=== PATIENT | male | born 1970 | race Caucasian/White ===

== ENCOUNTER 2016-09-18 15:33 | Emergency (ER) | payer SELFPAY | END 2016-09-18 17:24 | disposition home or self-care (01) | LOC: ER1 15:33 | DX: S46.911A Strain of unspecified muscle, fascia and tendon at shoulder and upper arm level, right arm, initial encounter (principal); F17.290 Nicotine dependence, other tobacco product, uncomplicated; X50.0XXA Overexertion from strenuous movement or load, initial encounter; Y93.89 Activity, other specified; Y92.69 Other specified industrial and construction area as the place of occurrence of the external cause; Y99.0 Civilian activity done for income or pay | CPT/HCPCS: 96372; 99283; J1885 ==

== ENCOUNTER 2020-04-24 16:38 | Emergency (ER) | payer OTHER ==
[~2020-04-24 16:38] MED LIST: AUGMENTIN 875-1 EACH PO; CYCLOBENZAPRINE5 MG PO; IBUPROFEN800 MG PO; NAPROSYN500 MG PO
== END 2020-04-24 18:55 | disposition home or self-care (01) ==
LOC: ER1 16:38
DX: S60.022A Contusion of left index finger without damage to nail, initial encounter (principal); W22.09XA Striking against other stationary object, initial encounter; Y92.89 Other specified places as the place of occurrence of the external cause; Y99.0 Civilian activity done for income or pay
CPT/HCPCS: 29130; 73130; 99283

== ENCOUNTER 2020-05-09 07:59 | Observation (INO) | payer OTHER, MEDICAID ==
[~2020-05-09] VITALS: Ht 180.3 cm; Wt 106.6 kg
[2020-05-09 10:09] LABS: HEMOGLOBIN 14.6 gm/dl (14.0-17.5); RED BLOOD COUNT 4.61 M/UL (4.20-5.50); WHITE BLOOD COUNT 9.8 K/UL (4.5-11.0)
[2020-05-09 10:42] LABS: BUN/CREATININE RATIO 19 (0-10)
[2020-05-09] MEDS ORDERED: HYDROCODON-ACE1 EAC2 PO (11:44)
[2020-05-10] MEDS ORDERED: HYDROCODON-ACE1 EAC2 PO (11:43)
== END 2020-05-10 12:46 | disposition home or self-care (01) ==
LOC: ER1 07:59 → CDU 10:19 → MED SURG 4 10:19
PROVIDERS: Orthopaedic Surgery; Physician Assistant; ADMIT Internal Medicine
PROC: 0X6S0Z3 Detachment at Right Ring Finger, Low, Open Approach (ICD-10-PCS; principal; 2020-05-09 20:46)
DX: S68.124A Partial traumatic metacarpophalangeal amputation of right ring finger, initial encounter (principal); W31.2XXA Contact with powered woodworking and forming machines, initial encounter; G89.29 Other chronic pain; M54.9 Dorsalgia, unspecified; F17.210 Nicotine dependence, cigarettes, uncomplicated; Z79.899 Other long term (current) drug therapy; Z20.822 Contact with and (suspected) exposure to COVID-19
CPT/HCPCS: 73130; 80053; 85025; 90471; 90715; 96374; 96375; 96376; 99284; G0378; J0360; J0690; J1100; J1170; J2001; J2250; J2270; J2405; J2704; J3010; J7120; U0002

== ENCOUNTER 2020-11-10 14:38 | Emergency (ER) | payer OTHER ==
[~2020-11-10 14:38] MED LIST changes: +HYDROCODON-ACE1 EAC2 PO
== END 2020-11-10 15:36 | disposition left against medical advice (07) ==
LOC: ER1 14:38
DX: Z53.21 Procedure and treatment not carried out due to patient leaving prior to being seen by health care provider (principal)

== ENCOUNTER 2021-01-26 08:29 | Emergency (ER) | payer OTHER ==
[2021-01-26 10:05] LABS: RED BLOOD COUNT 5.09 M/UL (4.20-5.50); WHITE BLOOD COUNT 6.1 K/UL (4.5-11.0)
[2021-01-26 10:27] LABS: BUN/CREATININE RATIO 10 (0-10)
== END 2021-01-26 11:55 | disposition home or self-care (01) ==
LOC: ER1 08:29
PROVIDERS: Student in an Organized Health Care Education/Training Program
DX: K40.90 Unilateral inguinal hernia, without obstruction or gangrene, not specified as recurrent (principal)
CPT/HCPCS: 80053; 85025; 86850; 86900; 86901; 99284; Q9967